=== PATIENT | female | born 1945 | race Caucasian/White ===

== ENCOUNTER 2016-11-13 05:49 | Emergency (ER) | payer OTHER ==
[~2016-11-13] VITALS: Ht 154.9 cm; Wt 72.6 kg
[2016-11-13] MEDS ORDERED: CYCLOBENZAPRINE5 M2 PO (06:07)
[2016-11-13 06:33] LABS: ABSOLUTE BASOPHIL COUNT 0.1 /CUMM (0.0-0.2); ABSOLUTE EOSINOPHIL COUNT 0.3 /CUMM (0.0-0.7); ABSOLUTE GRANULOCYTE CT 5.5 /CUMM (1.4-6.5); ABSOLUTE LYMPH COUNT 4.8 /CUMM (1.2-3.4); ABSOLUTE MONOCYTE COUNT 1.1 /CUMM (0.10-0.60); BASOPHIL % 0.6 % (0.0-2.0); EOSINOPHIL % 2.3 % (0-5); GRANULOCYTE % 46.7 % (42.2-75.2); HEMATOCRIT 43.2 % (37-47); MEAN CORPUSCULAR HGB 28.7 PG (27.0-31.0); MEAN CORPUSCULAR HGB CONC 32.2 G/DL (33.0-37.0); MEAN CORPUSCULAR VOLUME 89.3 FL (81.0-99.0); MEAN PLATELET VOLUME 8.7 FL (7.4-10.4); PLATELET COUNT 302 /CUMM (130-400); RBC DISTRIBUTION WIDTH 14.7 % (11.5-14.5); RED BLOOD CELL CT 4.84 /CUMM (4.20-5.40); WHITE BLOOD CELL COUNT 11.8 /CUMM (4.8-10.8)
--- NOTE | 2016-11-13 06:36 | ED CARDIAC/CP/PALPITATIONS ---
History of Present Illness General Chief Complaint: Chest Pain Stated Complaint: CHEST AND LEFT SHOULDER PAIN Source: patient, family, old records Exam Limitations: no limitations Vital Signs & Intake/Output Vital Signs & Intake/Output Vital Signs Date Time Temp Pulse Resp B/P B/P Pulse O2 O2 Flow FiO2 Mean Ox Delivery Rate 11/13 0526 98 20 102/63 100 Non 100% ReBreather 11/13 0520 94.6 105 20 153/115 100 Non 100% ReBreather 11/13 0605 95.3 97 18 130/98 98 Room Air Allergies Coded Allergies: MDX - PCN (penicillin) (PCN (PENICILLIN)) (Intermediate, GI DISTRESS 11/13/16) VOMITTING, DEHYDRATION PER PT MDX - Naproxen (Naproxen) (UNKNOWN 11/13/16) MDX - SULFA (sulfonamide) (SULFA (sulfonamide)) (UNKNOWN 11/13/16) MDX - Shellfish (Shellfish) (UNKNOWN 11/13/16) Reconcile Medications Cyclobenzaprine HCl 5 MG TABLET 1 TAB PO QPMP "MUSCLE SPASMS" (Reported) Triage Note: TRIAGE: PATIENT TO ER FROM HOME REPORTING MID CHEST PAIN "UP INTO THROAT," SINCE 0500. PATIENT REPORTS "FEELS LIKE A SENTHIL HORSE." +NAUSEA, DENIES VOMITTING/ ABD PAIN. DENIES SOB, THOUGH REPORTS "FEELS LIKE I'M HUFFING SOMETIMES." UNABLE TO REMAIN STILL IN TRIAGE. Triage Nurses Notes Reviewed? yes HPI: Patient was 5:00 in the morning with substernal chest pressure that radiated to her jaw. The symptoms continued for an hours and the patient came in for evaluation. The symptoms are constant. There are no aggravating or mitigating factors. She rates it as an 8 out of 10. She denies any shortness of breath. There is no nausea or vomiting. There is no diaphoresis. Patient has never had symptoms like this before. Past History Travel History Traveled to [place] past 21 day No Medical History Any Pertinent Medical History? see below for history Neurological: NONE EENT: NONE Cardiovascular: NONE Respiratory: NONE Gastrointestinal: NONE Hepatic: NONE Renal: NONE Musculoskeletal: "MUSCLE SPASMS" Psychiatric: NONE Endocrine: NONE Blood Disorders: NONE Cancer(s): NONE HEATING ENGINEER/Reproductive: NONE Influenza Vaccine: 03/10/14 Surgical History Surgical History: non-contributory Psychosocial History Who do you live with Spouse Services at Home None What is your primary language Uzbek Tobacco Use: Never used ETOH Use: denies use Illicit Drug Use: denies illicit drug use Family History Hx Contributory? No Review of Systems Review of Systems Constitutional: Reports: no symptoms. EENTM: Reports: no symptoms. Respiratory: Reports: no symptoms. Cardiovascular: Reports: see HPI, chest pain. GI: Reports: no symptoms. Genitourinary: Reports: no symptoms. Musculoskeletal: Reports: no symptoms. Skin: Reports: no symptoms. Neurological/Psychological: Reports: no symptoms. Hematologic/Endocrine: Reports: no symptoms. Immunologic/Allergic: Reports: no symptoms. All Other Systems: Reviewed and Negative Physical Exam Physical Exam General Appearance: well developed/nourished, alert, awake, severe distress Head: atraumatic, normal appearance Eyes: Bilateral: PERRL, EOMI. Ears, Nose, Throat: normal pharynx, normal ENT inspection, hearing grossly normal Neck: normal inspection, supple, full range of motion Respiratory: normal breath sounds, chest non-tender, no respiratory distress, lungs clear Cardiovascular: regular rate/rhythm, normal peripheral pulses Gastrointestinal: normal bowel sounds, soft, non-tender, no organomegaly Extremities: normal inspection, normal capillary refill, normal range of motion, no edema Neurologic/Psych: no motor/sensory deficits, awake, alert, oriented x 3, normal mood/affect Skin: intact, normal color, warm/dry Lymphatic: no anterior cervical beni Core Measures ACS in differential dx? Yes ASA ordered for poss ACS? Yes-ordered Severe Sepsis Present: No Septic Shock Present: No Progress Differential Diagnosis: AMI, myocarditis, pancreatitis, pericarditis, pneumonia, pneumothorax, pulmonary embolism Plan of Care: Orders Procedure Date/time Status LACTIC ACID 11/13 920 Active Telemetry/Hand Lens Polisher 11/14 639 Active COMPREHENSIVE METABOLIC PANEL 11/14 639 Active TROPONIN LEVEL 11/13 620 Active LACTIC ACID 11/13 620 Active CBC WITHOUT DIFFERENTIAL 11/13 620 Complete EKG 11/14 551 Active Current Medications Sig/Todd Start time Last Medication Dose Stop Time Status Admin Amiodarone HCl/ 360 MG Q12H 11/13 644 UNVr Dextrose (Nexterone) N/A 1 UNIT (No Carrier) Amiodarone HCl/ 300 MG ONCE ONE 11/13 644 UNVr Dextrose 11/13 0700 (Nexterone) N/A 1 UNIT (No Carrier) Aspirin 325 MG ONCE ONE 11/13 644 UNVr (Aspirin) 11/13 645 Heparin Sodium 4,000 UNIT ONCE ONE 11/13 644 UNir (Porcine) 11/13 645 Heparin Sodium/ 25,000 UNIT Q24H 11/13 644 UNVr Dextrose (Heparin) Dextrose/Water 500 ML (D5W) Morphine Sulfate 4 MG ONCE ONE 11/13 644 UNVr (Morphine) 11/13 645 Nitroglycerin 0.4 MG ONCE ONE 11/13 644 UNVr (Nitrostat) 11/13 645 Laboratory Tests 11/13/16 0620: Lactic Acid Pending, Troponin I Pending, CBC w Diff NO MAN DIFF REQ, RBC 4.84, MCV 89.3, MCH 28.7, RDW 14.7 H, MPV 8.7, Gran % 46.7, Lymphocytes % 40.8, Monocytes % 9.6 H, Eosinophils % 2.3, Basophils % 0.6, Absolute Granulocytes 5.5, Absolute Lymphocytes 4.8 H, Absolute Monocytes 1.1 H, Absolute Eosinophils 0.3, Absolute Basophils 0.1, PUBS MCHC 32.2 L Initial ED EKG: ST ELEVATION IN V1, V2 WITH ST DEPRESSIONS IN ALL OTEHR LEADS Prior EKG: changed Rhythm Strip: normal sinus rhythm Comments: During the history patient suddenly began to feel very lightheaded. Patient then went into coarse V. fib. CPR was initiated. Patient was defibrillated at 200 J. CPR was continued for 2 minutes. On pulse check patient had a pulse and patient woke up. Patient is currently awake alert and oriented. Patient was given 300 mg of amiodarone and a drip was initiated. Heparin was started. Aspirin was given. Departure Departure Disposition: OTHER [facility] ([facility]) Condition: Critical Clinical Impression Primary Impression: Acute anterior wall IA Referrals: GINETTE FAULKNER,JANET Navarrete (PCP/Family) Departure Forms: Customer Survey General Discharge Information Critical Care Note Critical Care Note Critical Care Time: mins: (30 MIN) Total CPR Time (mins): 2
[2016-11-13 06:40] VITALS: BP 104/70
== END 2016-11-13 07:07 | disposition short-term general hospital (02) ==
LOC: ERH 05:49
PROVIDERS: Emergency Medicine
DX: I21.09 ST elevation (STEMI) myocardial infarction involving other coronary artery of anterior wall (principal)
CPT/HCPCS: 93005; 93010; 96374; 96375; 99291; J1644